=== PATIENT | male | born 2000 | race Caucasian/White ===

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

== ENCOUNTER 2018-01-06 17:03 | Emergency (ER) | payer SELFPAY ==
[2018-01-06 17:34] VITALS: RESP 20; TEMP 98
[2018-01-06 18:15] VITALS: BP 124/68; PULSE 65; O2SAT 99
== END 2018-01-06 18:12 | disposition home or self-care (01) | DRG 159 ==
LOC: ED 17:03
DX: K04.7 Periapical abscess without sinus (principal)
CPT/HCPCS: 99282

== ENCOUNTER 2018-04-18 00:34 | Emergency (ER) | payer SELFPAY ==
[2018-04-18] MEDS ORDERED: ALBUTEROL/IPRATROPIUM 1 VIAL SOL INH ONE (00:47)
[2018-04-18 01:39] VITALS: BP 129/77
[2018-04-18 04:13] VITALS: PULSE 62; RESP 16; TEMP 97.2; O2SAT 96
== END 2018-04-18 02:00 | disposition home or self-care (01) | DRG 203 ==
LOC: ED 00:34
DX: J45.21 Mild intermittent asthma with (acute) exacerbation (principal); Z57.31 Occupational exposure to environmental tobacco smoke
CPT/HCPCS: 99282; 99283

== ENCOUNTER 2019-03-13 04:23 | Emergency (ER) | payer SELFPAY ==
[2019-03-13 04:29] VITALS: TEMP 97.1; O2SAT 99
[2019-03-13] MEDS ORDERED: APAP/HYDROCODONE 1 EACH TABLET ONE (04:37)
[2019-03-13] MEDS ORDERED: APAP/HYDROCODONE 1 EACH TABLET PO ONE (04:37)
[2019-03-13] MEDS ORDERED: KETOROLAC TROMETHAMINE 30 MG/ML SOL IM ONE (04:37)
[2019-03-13] MEDS ORDERED: KETOROLAC TROMETHAMINE 30 MG/ML SOL ONE (04:39)
[2019-03-13 05:45] VITALS: BP 119/86; PULSE 81; RESP 20
== END 2019-03-13 05:40 | disposition home or self-care (01) | DRG 552 ==
LOC: ED 04:23
DX: M54.9 Dorsalgia, unspecified (principal)
CPT/HCPCS: 72070; 72120; 96372; 99283; J1885; A9270-GY